=== PATIENT | female | born 1990 | race Caucasian/White ===

== ENCOUNTER → 2016-04-14 | Day surgery (SDC) | payer SELFPAY ==
[2016-04-09 21:52] VITALS: BMI 29.8
[~2016-04-14] MED LIST: DEXAMETHASONE 4 MG/ML VIAL IV ONE; FENTANYL 100 MCG/2 ML VIAL IV PRN; HYDROmorphone 1 MG INJECTION IV PRN; HYDROmorphone 2 MG/ML VIAL IM ONE; IBUPROFEN 800 MG TAB PO ONE; KETOROLAC TROMETH 30 MG/ML VIAL IM ONE; LABETALOL 20 MG/4 ML SYRINGE IV PRN; LIDOCAINE 100 MG PFS IV ONE; LR 1,000 ML IV SCH; MEPERIDINE 25 MG/ML TUBEX IV PRN; METOCLOPRAMIDE 10 MG/2 ML VIAL IV ONE; MIDAZOLAM 2 MG/2 ML VIAL IV ONE; ONDANSETRON HCL 4 MG ODT TAB PO PRN; ONDANSETRON HCL 4 MG/2 ML VIAL IV ONE; ONDANSETRON HCL 4 MG/2 ML VIAL IV PRN; ONDANSETRON HCL 4 MG/2 ML VIAL ONE; OXYCODONE HCL 5 MG TABLET ONE; PROMETHAZINE 25 MG/ML VIAL IV PRN; PROPOFOL 200 MG/20 ML VIAL IV ONE; RHo(D) IMMUNE GLOBULIN (HUMAN) 300 MCG SYRINGE IM ONE; RHo(D) IMMUNE GLOBULIN (HUMAN) 300 MCG SYRINGE IM SCH; hydrALAZINE 20 MG/ML VIAL IV PRN
--- NOTE | 2016-04-14 13:52 | SC.ANESPOS ---
Post-Anesthesia Note LOC: [facility] Post-Anesthesia Assessment: Awake, Returned to Baseline, Hemodynamically Stable , Pain Control Adequate Phase I & II Recovery Complete: Yes Apparent Anesthesia Complication: No : N PACU Discharge Time: 16:00 - Vital Signs Blood Pressure: 102/58 Pulse: 81 Resp Rate: 18 O2 Sat: 100 Temp: 97.4 F - Comments Anesthesia Discharge Time Report Time 16:00
--- NOTE | 2016-04-14 14:11 | HIM.ANES ---
Anesthesia Evaluation & Plan Diagnoses: MISSED (04/14/16) - Focused Review of Systems Respiratory: Yes: Hx Asthma Smoking Status: Heavy tobacco smoker (5 or more cigarettes/day or daily pipe/ cigar) - Focused Physical Exam NPO since: 329 Mallampati: Class II Thyromental Distance: Greater than 3 Neck: Full Range of Motion Dental: Normal - no significant findings Cardiovascular/Chest: Normal Respiratory: Lungs clear Any problems with anesthesia, including nausea and vomiting?: No Any relatives with a history of Malignant Hyperthermia?: No Does patient have a history of Malignant Hyperthermia?: No Beta Valentin given (if appropriate): N/A Other: Allergies Allergy/AdvReac Type Severity Reaction Status Date / Time amoxicillin Allergy Hives* Verified 04/09/16 21:53 bupropion [From Wellbutrin] Allergy See Verified 04/09/16 21:53 Comments clarithromycin [From Biaxin] Allergy Hives* Verified 04/09/16 21:53 erythromycin base Allergy Hives* Verified 04/09/16 21:53 loratadine [From Claritin] Allergy Unknown Verified 04/09/16 21:53 prednisone Allergy Hives* Verified 04/09/16 21:53 Height and Weight Patient's height 5 ft 6 in Patient's weight 185 lb 1.6 oz BMI 29.8 - Anesthetic Plan Anesthesia Type: General ASA Class: 2 -: I have examined this patient and reviewed the medical record. The patient has been assessed prior to anesthesia. Risks and benefits of anesthesia and anesthetic technique options have been discussed and all questions answered. The patient accepts the risk and desires me to proceed with the planned anesthetic.
--- NOTE | 2016-04-14 14:54 | HIMOPRPT ---
DATE OF PROCEDURE: DATE OF PROCEDURE: 04/14/16 PREOPERATIVE DIAGNOSIS: Missed . POSTOPERATIVE DIAGNOSIS: Missed . PROCEDURE: Dilation and evacuation with sharp curettage. SURGEON: Jo-Ann Smith MD. ANESTHESIA: General. COMPLICATIONS: None. ESTIMATED BLOOD LOSS: 100 mL. FINDINGS: The uterine size consistent with [8]-week size uterus with a moderate amount of products of conception. PROCEDURE IN DETAIL: The patient was taken to the operating room, where anesthesia was found to be adequate. She was prepped and draped in the sterile fashion, placed in candy- cane stirrups. Her bladder was emptied with in and out catheter. A weighted speculum was inserted into the vagina. The cervix was grasped with an Allis clamp and the uterus sounded to 8 cm. At this time, the cervix was dilated in symmetrical fashion using Jacobo dilators. A 8 mm suction curette was introduced and uterine contents evacuated. A sharp curettage was performed on all surfaces, and the suction curette reintroduced again with removal of products. This was continued until hemostasis was excellent and no products were noted. At this time, hemostasis was good. The tenaculum was removed. The weighted speculum was removed. The sponge, laps and needle counts correct x2. The patient tolerated well.
[2016-04-14 15:39] VITALS: TEMP 97.4
[2016-04-14 18:28] VITALS: PULSE 81
[2016-04-14 19:56] VITALS: BP 102/58
== END ==
LOC: SDC 13:11
PROVIDERS: ATTEND Obstetrics & Gynecology
PROC: 10D17ZZ Extraction of Products of Conception, Retained, Via Natural or Artificial Opening (ICD-10-PCS; principal; 2016-04-14 13:45)
DX: O02.1 Missed abortion (principal); F17.200 Nicotine dependence, unspecified, uncomplicated
CPT/HCPCS: 59820; 85461; 86850; 86900; 86901; J1100; J1170; J1885; J2001; J2250; J2405; J2765; J3490

== ENCOUNTER 2016-04-20 04:01 | Emergency (ER) | payer SELFPAY ==
[2016-04-20 04:22] VITALS: TEMP 98.7; BMI 29.5
[2016-04-20] MEDS ORDERED: HYDROmorphone 1 MG INJECTION IV ONE ×2 (04:41→05:20)
[2016-04-20] MEDS ORDERED: NS 1,000 ML IV ONE (04:41)
[2016-04-20] MEDS ORDERED: ONDANSETRON HCL 4 MG/2 ML VIAL IV ONE (04:41)
[2016-04-20 05:04] LABS: AUTOMATED BASOPHIL 0.6 % (0-2); AUTOMATED EOSINOPHIL 1.1 % (0-5); AUTOMATED LYMPH 29.1 % (17-44); AUTOMATED MONOCYTE 7.6 % (3-10); AUTOMATED NEUTROPHIL 61.6 % (45-76); MPV 9.1 fL (7.4-10.4)
[2016-04-20 05:14] LABS: BLOOD UREA NITROGEN 14 MG/DL (7-17); CALCIUM 9.3 MG/DL (8.4-10.2); CALCULATED OSMOLALITY 269 MOs/Kg (270-290); CHLORIDE 105 mEq/L (98-107); GLUCOSE 98 MG/DL (70-99); SODIUM LEVEL 139 mEq/L (137-146)
[2016-04-20] MEDS ORDERED: PROMETHAZINE 25 MG/ML VIAL IV ONE (05:21)
--- NOTE | 2016-04-20 05:46 | EDPRACDOC ---
- General Information Chief Complaint: Vaginal Bleeding Stated Complaint: VAG PAIN & BLEEDING (POST D&C) Time Seen by Provider: 04/20/16 04:27 Information Source: Patient Mode of Arrival: Car Home Medications: Home Medications Doxycycline [Vibramycin] 100 mg PO BID #14 tab 04/14/16 Ibuprofen Tablet [Motrin] 800 mg PO TID #30 tab 04/14/16 Oxycodone Immediate Release [Oxycodone Immediate Release (OxyIR)] 5 - 10 mg PO Q4H PRN #14 tab 04/20/16 Promethazine [Phenergan] 25 mg PO Q6 PRN #20 tab 04/20/16 Allergies/Adverse Reactions: Allergies Allergy/AdvReac Type Severity Reaction Status Date / Time amoxicillin Allergy Hives* Verified 04/20/16 04:22 bupropion [From Wellbutrin] Allergy See Verified 04/20/16 04:22 Comments clarithromycin [From Biaxin] Allergy Hives* Verified 04/20/16 04:22 erythromycin base Allergy Hives* Verified 04/20/16 04:22 loratadine [From Claritin] Allergy Unknown Verified 04/20/16 04:22 prednisone Allergy Hives* Verified 04/20/16 04:22 - History of Present Illness Onset: HPI: D and C 4 days ago after miscarriage. doing well until last night developed some vag bleeding and pelvic pain despite Abx and motrin. pain sharp and severe has h/o endometriosis and painful periods. no F/C. passed a few clots. Her OB was closed due to weather. Description: Reports: Spontaneous Relevant History: Denies: PID Associated Signs & Symptoms: Reports: Nausea, Vaginal Bleeding. 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 Denies: Depression Systemic History: Denies: Cancer Surgical History: Denies: Hysterectomy - Family Medical History Reports: Hypertension, Diabetes, Cancer, Cardiac Disorders. Denies: Stroke - Social Medical History Smoking Status: Heavy tobacco smoker (5 or more cigarettes/day or daily pipe/ cigar) EDM Review of Systems - Review of Systems ROS Negative Except as Marked: Yes All systems reviewed and were negative except as marked - Physical Exam Constitutional: Alert (Awake), No apparent distress Oriented to: Time, Person, Place Last recorded Vital Signs: Last Vital Signs Temp 98.7 F 04/20/16 04:17 Pulse 77 04/20/16 04:17 Resp 22 04/20/16 04:17 BP 130/83 04/20/16 04:17 Pulse Ox 100 04/20/16 04:17 Oxygen Pulse Oxygen Saturation 100 O2 Device Room Air Oxygen Flow Rate Fraction of Inspired Oxygen ( FIO2) - HEENT Head: Normal ( normocephalic) Eye Exam: Normal (PERRL, EOMI, Sclera white) Oropharynx: Normal (Pharynx:Moist without exudate,Gums-no swelling) Tympanic Membrane: Normal ENT EAC: Normal TMJ: Normal Nose: No Symptoms Reported (septum midline) Neck: Normal (FROM, trachea at midline) - Respiratory/Cardiovascular Respiratory: Normal - CTA (BBS clear to auscultation without adventitious sounds ) Cardiovascular: Normal (RRR without murmur, gallop or rub) - GI Auscultation: Normal (NABS) Palpation: Normal (Soft,No rebound or guarding, non distended) Tenderness: Non tender, Other (soft throughout, localizes discomfort bilateral pelvic region). negative: Guarding, RLQ, LLQ, Rebound Lee's Sign: Negative - Musculoskeletal Back: Normal (Non-Tender) Extremities: Normal (Normal tone, Pulses 2+ No cyanosis or edema, FROM) - Integumentary Skin: Normal, Warm, Dry Lymphatics: Normal (no adenopathy) - Neurologic Memory Impaired: Normal Motor Function: Normal (Normal tone, Pulses 2+ No cyanosis or edema, FROM) Cranial Nerve: Normal (CN II-X11 intact sensation, strength 5/5) Cerebellar: Normal Mood Description: Normal Perception: Normal - Re-evaluation Re-evaluation 1 Re-evaluation Time: 05:45 (pain improved 0/10, no sig bleeding in ED. plan d/c home Rx provided, follow up OB 1-2 days) - Results 04/20/16 04:55 04/20/16 04:55 WBC 11.4 xk/uL (3.8-10.8) H 04/20/16 04:55 RBC 4.11 xM/uL (4.20-5.40) L 04/20/16 04:55 Hgb 12.7 g/dL (12.0-16.0) 04/20/16 04:55 Hct 37.9 % (36-47) 04/20/16 04:55 MCV 92 fL (81-99) 04/20/16 04:55 MCH 31.0 pg (27-32) 04/20/16 04:55 MCHC 33.6 g/dl (33-36) 04/20/16 04:55 RDW 13.0 % (11.5-14.5) 04/20/16 04:55 Plt Count 194 xk/uL (130-400) 04/20/16 04:55 MPV 9.1 fL (7.4-10.4) 04/20/16 04:55 Neut % (Auto) 61.6 % (45-76) 04/20/16 04:55 Lymph % (Auto) 29.1 % (17-44) 04/20/16 04:55 [place] % (Auto) 7.6 % (3-10) 04/20/16 04:55 Eos % (Auto) 1.1 % (0-5) 04/20/16 04:55 Baso % (Auto) 0.6 % (0-2) 04/20/16 04:55 Absolute Neuts (auto) 6.95 xk/uL (1.7-8.2) 04/20/16 04:55 Absolute Lymphs (auto) 3.31 xk/uL (0.65-4.75) 04/20/16 04:55 Sodium 139 mEq/L (137-146) 04/20/16 04:55 Potassium 3.7 mEq/L (3.5-5.1) 04/20/16 04:55 Chloride 105 mEq/L (98-107) 04/20/16 04:55 Carbon Dioxide 24 mMOL/L (22-33) 04/20/16 04:55 Anion Gap 14 mEq/L (8-16) 04/20/16 04:55 BUN 14 MG/DL (7-17) 04/20/16 04:55 Creatinine 0.60 MG/DL (0.52-1.04) 04/20/16 04:55 Estimated GFR (MDRD) > 60 mL/min (>=60) 04/20/16 04:55 Glucose 98 MG/DL (70-99) 04/20/16 04:55 Calculated Osmolality 269 MOs/Kg (270-290) L 04/20/16 04:55 Calcium 9.3 MG/DL (8.4-10.2) 04/20/16 04:55 Lab Results 04/20/16 04/20/16 04:55 04:55 WBC 11.4 H RBC 4.11 L Hgb 12.7 Hct 37.9 MCV 92 MCH 31.0 MCHC 33.6 RDW 13.0 Plt Count 194 MPV 9.1 Neut % (Auto) 61.6 Lymph % (Auto) 29.1 [place] % (Auto) 7.6 Eos % (Auto) 1.1 Baso % (Auto) 0.6 Absolute Neuts (auto) 6.95 Absolute Lymphs (auto) 3.31 Sodium 139 Potassium 3.7 Chloride 105 Carbon Dioxide 24 Anion Gap 14 BUN 14 Creatinine 0.60 Estimated GFR (MDRD) > 60 Glucose 98 Calculated Osmolality 269 L Calcium 9.3 Decision Time to Discharge: 05:44 - Departure Yes I personally saw and evaluated the patient. Disposition: Home Condition: Improved Final Diagnosis: Vaginal bleeding Instructions: Dysfunctional Uterine Bleeding (ED) Education/Counseling Given To: Patient Education/Counseling Given Regarding: Diagnosis, Treatment, Follow Up Prescriptions: Oxycodone Immediate Release [Oxycodone Immediate Release (OxyIR)] 5 - 10 mg PO Q4H PRN #14 tab PRN Reason: Pain Promethazine [Phenergan] 25 mg PO Q6 PRN #20 tab PRN Reason: Nausea/Vomiting Additional Instructions: call your OB today to schedule follow up in 1-2 days
[2016-04-20 05:56] VITALS: BP 114/51; PULSE 84
== END 2016-04-20 05:56 | disposition home or self-care (01) ==
LOC: ED 04:01
DX: N93.9 Abnormal uterine and vaginal bleeding, unspecified (principal)
CPT/HCPCS: 36415; 80048; 85025; 96361; 96374; 96375; 96376; 99284; J1170; J2405; J2550

== ENCOUNTER 2016-04-21 11:59 | Emergency (ER) | payer SELFPAY ==
[2016-04-21 12:35] LABS: AUTOMATED BASOPHIL 0.3 % (0-2); AUTOMATED EOSINOPHIL 0.4 % (0-5); AUTOMATED LYMPH 21.5 % (17-44); AUTOMATED NEUTROPHIL 73.8 % (45-76); MPV 8.6 fL (7.4-10.4)
[2016-04-21 12:36] VITALS: BP 144/84; PULSE 76; TEMP 98.2; BMI 30.2
[2016-04-21 12:49] LABS: BLOOD UREA NITROGEN 12 MG/DL (7-17); CALCIUM 9.7 MG/DL (8.4-10.2); CALCULATED OSMOLALITY 271 MOs/Kg (270-290); CHLORIDE 106 mEq/L (98-107); GLUCOSE 90 MG/DL (70-99); SODIUM LEVEL 141 mEq/L (137-146); TOTAL PROTEIN 7.9 G/DL (6.3-8.2)
== END 2016-04-21 13:07 | disposition left against medical advice (07) ==
LOC: ED 11:59
DX: R10.9 Unspecified abdominal pain (principal); Z98.890 Other specified postprocedural states; Z53.21 Procedure and treatment not carried out due to patient leaving prior to being seen by health care provider
CPT/HCPCS: 80053; 85025

== ENCOUNTER 2016-04-26 06:01 | Emergency (ER) | payer SELFPAY ==
--- NOTE | 2016-04-26 06:11 | EDPRACDOC ---
- History of Present Illness Onset: 2 WEEKS <Miguelangel Skelton - Last Filed: 04/26/16 06:13> <Karyn Salas - Last Filed: 04/26/16 09:33> - General Information Stated Complaint: ABD PAIN Time Seen by Provider: 04/26/16 06:09 Home Medications: Home Medications Ibuprofen Tablet [Motrin] 800 mg PO TID #30 tab 04/14/16 Oxycodone Immediate Release [Oxycodone Immediate Release (OxyIR)] 5 - 10 mg PO Q4H PRN #14 tab 04/20/16 Promethazine [Phenergan] 25 mg PO Q6 PRN #20 tab 04/20/16 Hydroxyzine HCl 25 mg PO Q6H 04/26/16 Ketorolac Tromethamine [Toradol] 10 mg PO Q6H PRN #20 tab 04/26/16 Misoprostol [Cytotec] 200 mcg PO BID 04/26/16 Zofran Her Mothers Rx See Comment 4 mg PO .SEE COMMENTS PRN 04/26/16 Allergies/Adverse Reactions: Allergies Allergy/AdvReac Type Severity Reaction Status Date / Time amoxicillin Allergy Hives* Verified 04/26/16 06:20 bupropion [From Wellbutrin] Allergy See Verified 04/26/16 06:20 Comments clarithromycin [From Biaxin] Allergy Hives* Verified 04/26/16 06:20 erythromycin base Allergy Hives* Verified 04/26/16 06:20 loratadine [From Claritin] Allergy Unknown Verified 04/26/16 06:20 prednisone Allergy Hives* Verified 04/26/16 06:20 - History of Present Illness HPI: LOWER ABDOMINAL PAIN 10/10, SHARP, STABBING, SHOOTING. 5 PADS DAILY OF VAGINAL BLEEDING. HAD D AND C FOR MISCARRIAGE [address] SMITH. SEEN IN ED FOR SAME PAIN HERE A FEW TIMES. PT REPORTS GOING TO [place] 3 DAYS AGO, HAD ULTRASOUND, SHE REPORTS LOTS OF CLOTS IN UTERUS. H/O ENDOMETRIOSIS. PT DENIES FEVER. VAGINAL BLEEDING STARTED 4 DAYS S/P PROCEDURE. (Miguelangel Skelton) ED Past Medical History - History Reviewed Yes Nurses notes reviewed and agree except as marked - Patient Medical History Respiratory History: Reports: Asthma GI/ History: Reports: Ulcer Psychological History: Reports: Bipolar Disorder. Denies: Depression Systemic History: Denies: Cancer Surgical History: Denies: Hysterectomy - Family Medical History Reports: Hypertension, Diabetes, Cancer, Cardiac Disorders. Denies: Stroke - Social Medical History Smoking Status: Heavy tobacco smoker (5 or more cigarettes/day or daily pipe/ cigar) <Miguelangel Skelton - Last Filed: 04/26/16 06:13> EDM Review of Systems - Review of Systems ROS Negative Except as Marked: Yes All systems reviewed and were negative except as marked Constitutional: No Symptoms Reported Respiratory: No Symptoms Reported Cardiovascular: No Symptoms Reported Gastrointestinal: Nausea, Pain, Vomiting Neurological: No Symptoms Reported Musculoskeletal: No Symptoms Reported Integumentary: No Symptoms Reported <Miguelangel Skelton - Last Filed: 04/26/16 06:13> - Physical Exam Constitutional: Alert (Awake), No apparent distress Oriented to: Time, Person, Place - HEENT Head: Normal ( normocephalic) Eye Exam: Normal (PERRL, EOMI, Sclera white) Oropharynx: Normal (Pharynx:Moist without exudate,Gums-no swelling) Nose: No Symptoms Reported (septum midline) Neck: Normal (FROM, trachea at midline) - Respiratory/Cardiovascular Respiratory: Normal - CTA (BBS clear to auscultation without adventitious sounds ) Cardiovascular: Normal (RRR without murmur, gallop or rub) - GI Auscultation: Normal (NABS) Tenderness: Mild, Suprapubic. negative: Guarding, Rebound, Rigidity Lee's Sign: Negative - Musculoskeletal Back: Normal (Non-Tender) Extremities: Normal (Normal tone, Pulses 2+ No cyanosis or edema, FROM) - Integumentary Skin: Normal, Warm, Dry Lymphatics: Normal (no adenopathy) - Neurologic Memory Impaired: Normal Motor Function: Normal (Normal tone, Pulses 2+ No cyanosis or edema, FROM) Cranial Nerve: Normal (CN II-X11 intact sensation, strength 5/5) Cerebellar: Normal Mood Description: Normal Perception: Normal <Miguelangel Skelton - Last Filed: 04/26/16 06:13> <Miguelangel Skelton - Last Filed: 04/26/16 06:13> - Re-evaluation Re-evaluation 2 Re-evaluation Time: 07:14 (I ASSUMED CARE FROM DR. SKELTON, WITH PATIENT'S STABLE CONDITION. HAVE REVIEWED HER PREVIOUS HISTORY HER RECENT PELVIC ULTRASOUND AND RE-EXAMINED THE PATIENT ABDOMEN HAS MILD TENDERNESS PALPATION BILATERAL LOWER QUADRANTS IS NO PERITONEAL SIGNS.) - Results 04/26/16 06:09 04/26/16 06:09 - Diagnostic Imaging Abdomen Image interpreted by: Radiologist <Karyn Salas - Last Filed: 04/26/16 09:33> - Re-evaluation Re-evaluation 2 GIVEN THAT THE PATIENT HAS HAD MULTIPLE ED VISITS FOR PAIN, PELVIC US DONE, NO BRASS CHASER F/U YET, AND REPORTS PAIN OUT OF PROPORTION TO EXPECTATION, I HAVE ADVISED CT OF ABD/ PELVIS. THIS IS BASED UPON REPORTED PAIN LEVEL. I HAVE COUNSELED HER REGARDING RRISK OF CT RADIATION An extensive discussion regarding CT imaging was undertaken with the patient. Risk of radiation exposure leading to possible increased malignancy rates in the future, Benefits such as diagnostic information, and Alternatives such as observation or other alternative test were discussed. PT HAS CHOSEN TO PROCEED WITH CT (Karyn Salas) - Results WBC 7.5 xk/uL (3.8-10.8) 04/26/16 06:09 RBC 4.23 xM/uL (4.20-5.40) 04/26/16 06:09 Hgb 13.2 g/dL (12.0-16.0) 04/26/16 06:09 Hct 39.7 % (36-47) 04/26/16 06:09 MCV 94 fL (81-99) 04/26/16 06:09 MCH 31.1 pg (27-32) 04/26/16 06:09 MCHC 33.2 g/dl (33-36) 04/26/16 06:09 RDW 13.2 % (11.5-14.5) 04/26/16 06:09 Plt Count 231 xk/uL (130-400) 04/26/16 06:09 MPV 9.2 fL (7.4-10.4) 04/26/16 06:09 Neut % (Auto) 48.4 % (45-76) 04/26/16 06:09 Lymph % (Auto) 41.9 % (17-44) 04/26/16 06:09 [place] % (Auto) 7.9 % (3-10) 04/26/16 06:09 Eos % (Auto) 1.0 % (0-5) 04/26/16 06:09 Baso % (Auto) 0.8 % (0-2) 04/26/16 06:09 Absolute Neuts (auto) 3.60 xk/uL (1.7-8.2) 04/26/16 06:09 Absolute Lymphs (auto) 3.08 xk/uL (0.65-4.75) 04/26/16 06:09 Sodium 138 mEq/L (137-146) 04/26/16 06:09 Potassium 3.6 mEq/L (3.5-5.1) 04/26/16 06:09 Chloride 104 mEq/L (98-107) 04/26/16 06:09 Carbon Dioxide 22 mMOL/L (22-33) 04/26/16 06:09 Anion Gap 16 mEq/L (8-16) 04/26/16 06:09 BUN 13 MG/DL (7-17) 04/26/16 06:09 Creatinine 0.60 MG/DL (0.52-1.04) 04/26/16 06:09 Estimated GFR (MDRD) > 60 mL/min (>=60) 04/26/16 06:09 Glucose 93 MG/DL (70-99) 04/26/16 06:09 Calculated Osmolality 266 MOs/Kg (270-290) L 04/26/16 06:09 Calcium 8.8 MG/DL (8.4-10.2) 04/26/16 06:09 Lab Results 04/26/16 04/26/16 06:09 06:09 WBC 7.5 RBC 4.23 Hgb 13.2 Hct 39.7 MCV 94 MCH 31.1 MCHC 33.2 RDW 13.2 Plt Count 231 MPV 9.2 Neut % (Auto) 48.4 Lymph % (Auto) 41.9 [place] % (Auto) 7.9 Eos % (Auto) 1.0 Baso % (Auto) 0.8 Absolute Neuts (auto) 3.60 Absolute Lymphs (auto) 3.08 Sodium 138 Potassium 3.6 Chloride 104 Carbon Dioxide 22 Anion Gap 16 BUN 13 Creatinine 0.60 Estimated GFR (MDRD) > 60 Glucose 93 Calculated Osmolality 266 L Calcium 8.8 (Karyn Salas) - Diagnostic Imaging Abdomen 04/26/16 09:31 Patient Name: NANCY FAGAN LOC: ED : 1990 AGE: 25 Order Date:04/26/16 Date of Service: Report # [id number] Ord Physician: Karyn Salas MD Exam # [id number] Emergency Physician: Karyn Saals MD Exam(s): [id number] CT/CT ABD-PELV W/IV CM CLINICAL DATA: Bilateral lower quadrant pain. Vaginal bleeding for 2 weeks EXAM: CT ABDOMEN AND PELVIS WITH CONTRAST TECHNIQUE: Multidetector CT imaging of the abdomen and pelvis was performed using the standard protocol following bolus administration of intravenous contrast. CONTRAST: 80 mL Isovue 370 COMPARISON: None. FINDINGS: Lower chest: Clear lung bases. Normal heart size. Hepatobiliary: Normal liver. Normal gallbladder. Pancreas: Normal. Spleen: Normal. Adrenals/Urinary Tract: Normal adrenal glands. Normal kidneys. No urolithiasis or obstructive uropathy. Normal bladder. Stomach/Bowel: No bowel dilatation or bowel wall thickening. Prior appendectomy. No pneumatosis, pneumoperitoneum or portal venous gas. No abdominal or pelvic free fluid. Vascular/Lymphatic: Normal caliber abdominal aorta. No lymphadenopathy. Reproductive: No adnexal mass. Irregular endometrium with endometrial fluid. Other: No fluid collection or hematoma. Musculoskeletal: No acute osseous abnormality. No lytic or sclerotic osseous lesion. IMPRESSION: 1. Irregular endometrium with endometrial fluid. The endometrium is suboptimally characterized on this exam. Recommend further evaluation with a pelvic ultrasound. Electronically Signed By: Elva Cotto On: 04/26/2016 09:13 Electronically Signed By: Elva Cotto MD Electronically Signed Date/Time: [id number] Dictate Date/Time: 04/26/16 0910 Technologist: Kieran Perla Transcribed By: Lina Transcribed Date/Time: 04/26/1613 (Karyn Salas) <Miguelangel Skelton - Last Filed: 04/26/16 06:13> - Departure Disposition: Home Education/Counseling Given To: Patient, Family Member Education/Counseling Given Regarding: Diagnosis, Treatment, Prognosis <Karyn Salas - Last Filed: 04/26/16 09:33> - Departure Condition: Stable Final Diagnosis: Abdominal pain, POST PROCEDURE PAIN Instructions: Abdominal Pain in Women Referrals: Jo-Ann Smith MD [Staff Physician] - One Week Prescriptions: Ketorolac Tromethamine [Toradol] 10 mg PO Q6H PRN #20 tab PRN Reason: Pain
[2016-04-26] MEDS ORDERED: KETOROLAC TROMETH 30 MG/ML VIAL IV ONE (06:14)
[2016-04-26] MEDS ORDERED: ONDANSETRON HCL 4 MG/2 ML VIAL IV ONE (06:14)
[2016-04-26 06:17] VITALS: TEMP 97.7; BMI 29.0
[2016-04-26 06:47] LABS: AUTOMATED BASOPHIL 0.8 % (0-2); AUTOMATED LYMPH 41.9 % (17-44); AUTOMATED MONOCYTE 7.9 % (3-10); AUTOMATED NEUTROPHIL 48.4 % (45-76); MPV 9.2 fL (7.4-10.4)
[2016-04-26 06:50] LABS: BLOOD UREA NITROGEN 13 MG/DL (7-17); CALCULATED OSMOLALITY 266 MOs/Kg (270-290); CHLORIDE 104 mEq/L (98-107); GLUCOSE 93 MG/DL (70-99); SODIUM LEVEL 138 mEq/L (137-146)
[2016-04-26 07:06] LABS: CALCIUM 8.8 MG/DL (8.4-10.2)
[2016-04-26] MEDS ORDERED: Pharmacy Review for Metformin - IV Contrast Given SCH (08:00)
--- NOTE | 2016-04-26 09:15 | DIRPT ---
CLINICAL DATA: Bilateral lower quadrant pain. Vaginal bleeding for 2 weeks EXAM: CT ABDOMEN AND PELVIS WITH CONTRAST TECHNIQUE: Multidetector CT imaging of the abdomen and pelvis was performed using the standard protocol following bolus administration of intravenous contrast. CONTRAST: 80 mL Isovue 370 COMPARISON: None. FINDINGS: Lower chest: Clear lung bases. Normal heart size. Hepatobiliary: Normal liver. Normal gallbladder. Pancreas: Normal. Spleen: Normal. Adrenals/Urinary Tract: Normal adrenal glands. Normal kidneys. No urolithiasis or obstructive uropathy. Normal bladder. Stomach/Bowel: No bowel dilatation or bowel wall thickening. Prior appendectomy. No pneumatosis, pneumoperitoneum or portal venous gas. No abdominal or pelvic free fluid. Vascular/Lymphatic: Normal caliber abdominal aorta. No lymphadenopathy. Reproductive: No adnexal mass. Irregular endometrium with endometrial fluid. Other: No fluid collection or hematoma. Musculoskeletal: No acute osseous abnormality. No lytic or sclerotic osseous lesion. IMPRESSION: 1. Irregular endometrium with endometrial fluid. The endometrium is suboptimally characterized on this exam. Recommend further evaluation with a pelvic ultrasound. Electronically Signed By: Elva Cotto On: 04/26/2016 09:13
[2016-04-26 09:43] VITALS: BP 133/61; PULSE 58
== END 2016-04-26 09:40 | disposition home or self-care (01) ==
LOC: ED 06:01
DX: G89.18 Other acute postprocedural pain (principal); R10.9 Unspecified abdominal pain
CPT/HCPCS: 36415; 74177; 80048; 85025; 96374; 96375; 99284; A9698; J1885; J2405

== ENCOUNTER → 2016-04-28 | Day surgery (SDC) | payer SELFPAY ==
[2016-04-26 06:17] VITALS: BMI 29.0
[~2016-04-28] MED LIST changes: +Clindamycin 600 mg/D5W 50 ml 600 MG/50 ML IVB IV ONE; -DEXAMETHASONE 4 MG/ML VIAL IV ONE; +FENTANYL 100 MCG/2 ML VIAL IV ONE; +GENTAMICIN IV ONE; -IBUPROFEN 800 MG TAB PO ONE; -LR 1,000 ML IV SCH; +NS IV ONE; -ONDANSETRON HCL 4 MG/2 ML VIAL ONE; -OXYCODONE HCL 5 MG TABLET ONE; -PROMETHAZINE 25 MG/ML VIAL IV PRN; -RHo(D) IMMUNE GLOBULIN (HUMAN) 300 MCG SYRINGE IM ONE; -RHo(D) IMMUNE GLOBULIN (HUMAN) 300 MCG SYRINGE IM SCH
--- NOTE | 2016-04-28 10:35 | HIM.ANES ---
Anesthesia Evaluation & Plan Diagnoses: MISSED (04/28/16) - Focused Review of Systems Cardiac History: No: Hx Cardiac Disorders HEENT: No: Other HEENT Problems Respiratory: Yes: Hx Asthma (asymptomatic since age 16.) Gastrointestinal: Yes: Hx Gastroesophageal Reflux Disease, Hx Gastrointestinal Disorders Neurological/Musculoskeletal: No: Hx Neurological Disorders Psychological: No Hx Depression, Yes Hx Mental/Emotional Disorders, Yes Hx Bipolar Disorder Blood/Autoimmune: No: Hx AIDS, Hx Hepatitis (type) Smoking Status: Heavy tobacco smoker (5 or more cigarettes/day or daily pipe/ cigar) - Focused Physical Exam NPO since: after Midnight Mallampati: Class II Thyromental Distance: Greater than 3 Neck: Full Range of Motion Cardiovascular/Chest: Normal (RRR no mumurs or rubs.) Respiratory: Lungs clear. negative: Rhonchi, Wheezing Any problems with anesthesia, including nausea and vomiting?: No Any relatives with a history of Malignant Hyperthermia?: No Other: Problem List Problem Status Onset Abdominal pain Acute Vaginal bleeding Acute Allergies Allergy/AdvReac Type Severity Reaction Status Date / Time amoxicillin Allergy Hives* Verified 04/26/16 06:20 bupropion [From Wellbutrin] Allergy See Verified 04/26/16 06:20 Comments clarithromycin [From Biaxin] Allergy Hives* Verified 04/26/16 06:20 erythromycin base Allergy Hives* Verified 04/26/16 06:20 loratadine [From Claritin] Allergy Unknown Verified 04/26/16 06:20 prednisone Allergy Hives* Verified 04/26/16 06:20 Home Medications Medication Instructions Recorded Last Taken Type Ibuprofen Tablet [Motrin] 800 mg PO TID #30 tab 04/14/16 04/25/16 Rx Oxycodone Immediate Release 5 - 10 mg PO Q4H PRN #14 tab 04/20/16 04/25/16 Rx [Oxycodone Immediate Release (OxyIR)] Promethazine [Phenergan] 25 mg PO Q6 PRN #20 tab 04/20/16 04/25/16 Rx Hydroxyzine HCl 25 mg PO Q6H 04/26/16 04/25/16 History Ketorolac Tromethamine [Toradol] 10 mg PO Q6H PRN #20 tab 04/26/16 Unknown Rx Misoprostol [Cytotec] 200 mcg PO BID 04/26/16 04/25/16 History Zofran Her Mothers Rx See Comment 4 mg PO .SEE COMMENTS PRN 04/26/16 04/25/16 History Height and Weight Patient's height 5 ft 6 in Patient's weight 81.647 kg BMI 29.0 - Anesthetic Plan Anesthesia Type: General ASA Class: 2 -: I have examined this patient and reviewed the medical record. The patient has been assessed prior to anesthesia. Risks and benefits of anesthesia and anesthetic technique options have been discussed and all questions answered. The patient accepts the risk and desires me to proceed with the planned anesthetic.
[2016-04-28 10:51] LABS: MPV 8.2 fL (7.4-10.4)
--- NOTE | 2016-04-28 11:44 | HIMOPRPT ---
DESCRIPTION OF PROCEDURE: DATE OF PROCEDURE: 04/28/16 PREOPERATIVE DIAGNOSIS: Retained products. POSTOPERATIVE DIAGNOSIS: Retained products. PROCEDURE: Suction dilation and curettage. SURGEON: Alda Mars DO ANESTHESIA: General. COMPLICATIONS: None. ESTIMATED BLOOD LOSS: 2 mL.. URINE OUTPUT: 50 mL of clear urine drained at the beginning of procedure. SPECIMENS: Retained products. PROCEDURE IN DETAIL: The patient was taken to the operating room. She was prepped and draped in a sterile fashion. A red rubber catheter was inserted. Approximately 50 mL of clear urine was drained from the bladder. A weighted speculum was inserted. The cervix was visualized. Anterior lip of the cervix grasped with an Allis clamp. The uterus was was attempted to be sounded however the uterine sound could not pass through the cervix. Dilators were then used to gradually dilate the cervix until the uterine sound could be passed. The uterus was then gently sounded to 6 cm. A size 6 suction curette tip was not available so a size 7 curved suction curette tip was selected. A suction curettage was done with no return of tissue after checking for proper functioning of the suction apparatus. A sharp curette was then introduced and a small amount of tissue mixed with blood clot was removed. This tissue was teased out of the cervix using the polyp forceps. After this the suction curette was reintroduced and again nothing was returned through the suction curette. The sharp curette was reintroduced to ensure that no remaining tissue or clot was felt within the uterine cavity and the uterine cavity was felt to be clear. Good hemostasis was noted and the procedure was ended. The Allis clamp was removed from the anterior lip of the cervix. The weighted speculum was removed. The patient was sent to recovery in stable condition
[2016-04-28 12:09] VITALS: TEMP 98.7
[2016-04-28 12:45] VITALS: PULSE 71
[2016-04-28 13:13] VITALS: BP 119/65
--- NOTE | 2016-04-28 13:13 | SC.ANESPOS ---
Post-Anesthesia Note LOC: Fully Awake Post-Anesthesia Assessment: Awake, Returned to Baseline, Hemodynamically Stable , Pain Control Adequate Phase I & II Recovery Complete: Yes Apparent Anesthesia Complication: No : N - Vital Signs Blood Pressure: 119/65 Pulse: 71 Resp Rate: 18 O2 Sat: 99 Temp: 98.7 F
== END ==
LOC: SDC 10:03
PROVIDERS: ATTEND Obstetrics & Gynecology
PROC: 10A07ZZ Abortion of Products of Conception, Via Natural or Artificial Opening (ICD-10-PCS; principal; 2016-04-28 10:45)
DX: O03.4 Incomplete spontaneous abortion without complication (principal)
CPT/HCPCS: 59812; 85027; 86850; 86900; 86901; J1170; J1580; J1885; J2001; J2250; J2405; J2765; J3010; J3490; J7030